=== PATIENT | female | born 1955 | race Caucasian/White ===

== ENCOUNTER 2017-09-07 09:42 | Outpatient (CLI) | payer BC | END 2017-09-07 16:42 | disposition home or self-care (01) | LOC: HPC 09:42 | DX: K43.9 Ventral hernia without obstruction or gangrene (principal) | CPT/HCPCS: Z7500 ==

== ENCOUNTER 2017-10-09 08:17 | Inpatient (IN) | payer BC ==
[~2017-10-09 08:17] MED LIST: BUPIVACAINE 0.25%/EPI (MDV) 50 ML VIAL INJ; CEFAZOLIN 1 GM INJ; CEFAZOLIN 2 GM/50 ML (PMX) 50 ML IVPB; D5W-0.45 NACL + KCL 20 MEQ 1,000 ML IV; DEXAMETHASONE 4 MG/ML 1 ML INJ; METOCLOPRAMIDE 10 MG INJ
[2017-10-09] MEDS ORDERED: FENTAnyl 50 MCG/ML VIAL (08:59)
[2017-10-09] MEDS ORDERED: MIDAZOLAM 1 MG/ML 2 ML INJ (08:59)
[2017-10-09] MEDS ORDERED: PROPOFOL 20 ML (09:01)
[2017-10-09] MEDS ORDERED: ROCURONIUM 50 MG INJ (09:01)
[2017-10-09] MEDS ORDERED: LIDOCAINE 100 MG SYRINGE (09:01)
[2017-10-09] MEDS ORDERED: SUCCINYLCHOLINE CHLORIDE 100 MG/5 ML SYG IV (09:01)
[2017-10-09 09:18] LABS: ADD MAN DIFF? NO
[2017-10-09 09:24] LABS: WHITE BLOOD COUNT 7.4 10^3/ul (4.8-10.8)
[2017-10-09 09:24] LABS: BASOPHILS % 0.5 % (0.0-2.0); EOSINOPHILS % 0.3 % (0.0-7.0); HEMATOCRIT 34.7 % (37.0-47.0); HEMOGLOBIN 11.5 g/dl (12.0-16.0); LYMPHOCYTES # 3.2 10^3/ul (0.8-2.9); LYMPHOCYTES % 43.6 % (15.0-51.0); MEAN CORPUSCULAR HEMOGLOBIN 30.1 pg (29.0-33.0); MEAN CORPUSCULAR HGB CONC 33.1 g/dl (32.0-37.0); MEAN CORPUSCULAR VOLUME 90.8 fl (82.0-101.0); MEAN PLATELET VOLUME 10.4 fl (7.4-10.4); MONOCYTE # 0.5 10^3/ul (0.3-0.9); MONOCYTES % 6.8 % (0.0-11.0); NEUTROPHIL # 3.6 10^3/ul (1.6-7.5); NEUTROPHILS % 48.4 % (39.0-77.0); PLATELET COUNT 208 10^3/UL (140-415); RED BLOOD COUNT 3.82 10^6/ul (4.20-5.40)
[2017-10-09 09:39] LABS: INR 0.99; PARTIAL THROMBOPLASTIN TIME 30.3 Sec (25.0-35.0); PROTIME 13.2 Sec (11.9-14.9)
[2017-10-09 09:46] LABS: ALANINE AMINOTRANSFERASE 30 IU/L (13-69); ALBUMIN 4.5 g/dl (3.3-4.9); ALKALINE PHOSPHATASE 41 IU/L (42-121); ANION GAP 15 (8-16); ASPARTATE AMINO TRANSFERASE 26 IU/L (15-46); CARBON DIOXIDE 24 mmol/L (21-31); CHLORIDE 107 mmol/L (97-110); GLUCOSE 100 mg/dl (70-220); TOTAL PROTEIN 7.5 g/dl (6.1-8.1)
[2017-10-09 09:47] LABS: BLOOD UREA NITROGEN 11 mg/dl (7-20); CALCIUM 8.8 mg/dl (8.4-10.2); CREATININE 0.61 mg/dl (0.44-1.00); POTASSIUM 4.2 mmol/L (3.5-5.1); SODIUM 142 mmol/L (135-144)
[2017-10-09] MEDS: BUPIVACAINE 0.25%/EPI (SDV) 30 ML INJ INJ ×2 (11:26)
[2017-10-09] MEDS ORDERED: HYDROmorphONE 2 MG/ML SYG (12:27)
[2017-10-09] MEDS: POLYMYXIN/BACITRACIN 1L IRRIG (13:30)
[2017-10-09] MEDS ORDERED: FENTAnyl 50 MCG/ML VIAL IV (14:30)
[2017-10-09] MEDS ORDERED: HYDROmorphONE (0.2 MG/ML) 10ML SYG IV (14:30)
[2017-10-09] MEDS ORDERED: METOCLOPRAMIDE 10 MG INJ IV (14:30)
[2017-10-09] MEDS: ONDANSETRON 4 MG INJ IV (14:35)
[2017-10-09] MEDS: HYDROmorphONE (0.2 MG/ML) 10ML SYG IV ×3 (14:36→16:07)
[2017-10-09] MEDS: FENTAnyl 50 MCG/ML VIAL IV ×3 (14:36→15:28)
[2017-10-09] MEDS: DIPHENHYDRAMINE 50 MG INJ IV (14:36)
[2017-10-09] MEDS: MEPERIDINE 25 MG INJ IV (14:36)
[2017-10-09] MEDS ORDERED: BISACODYL (EC) 5 MG TAB PO (15:00)
[2017-10-09] MEDS ORDERED: ACETAMINOPHEN 325 MG TAB PO (15:00)
[2017-10-09] MEDS ORDERED: BISACODYL 10 MG SUPP PR (15:00)
[2017-10-09] MEDS ORDERED: HYDROmorphONE 0.5 MG/0.5 ML SYG IV (15:00)
[2017-10-09] MEDS ORDERED: LORAZEPAM 2 MG INJ IV (15:00)
[2017-10-09] MEDS ORDERED: HYDROmorphONE 1 MG/ML SYG IV (15:00)
[2017-10-09] MEDS ORDERED: NACL 0.9% 3 ML SYG IV (15:00)
[2017-10-09] MEDS ORDERED: HYDROCODONE/APAP (5/325) TAB PO ×2 (15:00)
[2017-10-09] MEDS ORDERED: ONDANSETRON 4 MG INJ IV (15:00)
[2017-10-09] MEDS ORDERED: NA PHOSPHATE/BIPHOS 133 ML ENEMA PR (15:00)
[2017-10-09] MEDS: HYDROmorphONE 0.2 MG/ML PCA IV (15:20)
[2017-10-09] MEDS: KETOROLAC 30 MG INJ IV ×2 (15:30→21:30)
[2017-10-09] MEDS ORDERED: GLUCOSE GEL 15 GRAM TUBE BUCCAL (15:30)
[2017-10-09] MEDS ORDERED: GLUCOSE GEL 15 GRAM TUBE PO ×2 (15:30)
[2017-10-09] MEDS ORDERED: DEXTROSE 50% 50 ML SYRINGE IV ×2 (15:30)
[2017-10-09] MEDS ORDERED: GLUCAGON 1 MG INJ IM (15:30)
[2017-10-09] MEDS: D5W-0.45 NACL + KCL 20 MEQ 1,000 ML IV (16:35)
[2017-10-09] MEDS: INSULIN ASPART [NOVOLOG] 3 ML PEN SC ×2 (17:55→21:00)
[2017-10-09] MEDS: SUCRALFATE 1 GM TAB PO ×2 (17:59→21:29)
[2017-10-09] MEDS: GABAPENTIN 300 MG CAP PO (21:29)
[2017-10-09] MEDS: CALCIUM CARBONATE 1.25 GM TAB PO (21:30)
[2017-10-09] MEDS: PROPRANOLOL 10 MG TAB PO (22:59)
[2017-10-09] MEDS: AMITRIPTYLINE 10 MG TAB PO (22:59)
[2017-10-09] MEDS: TEMAZEPAM 30 MG PO (23:06)
[2017-10-10] MEDS: D5W-0.45 NACL + KCL 20 MEQ 1,000 ML IV ×2 (00:41→02:44)
[2017-10-10] MEDS: ACCU-CHEK XX (01:37)
[2017-10-10] MEDS: KETOROLAC 30 MG INJ IV ×2 (02:45→08:39)
[2017-10-10 04:57] LABS: ADD MAN DIFF? NO; BASOPHILS % 0.2 % (0.0-2.0); EOSINOPHILS % 0.5 % (0.0-7.0); HEMATOCRIT 28.6 % (37.0-47.0); HEMOGLOBIN 9.1 g/dl (12.0-16.0); LYMPHOCYTES # 2.7 10^3/ul (0.8-2.9); LYMPHOCYTES % 31.3 % (15.0-51.0); MEAN CORPUSCULAR HEMOGLOBIN 29.9 pg (29.0-33.0); MEAN CORPUSCULAR HGB CONC 31.8 g/dl (32.0-37.0); MEAN CORPUSCULAR VOLUME 94.1 fl (82.0-101.0); MONOCYTE # 0.8 10^3/ul (0.3-0.9); MONOCYTES % 9.2 % (0.0-11.0); NEUTROPHIL # 5.1 10^3/ul (1.6-7.5); NEUTROPHILS % 58.5 % (39.0-77.0); PLATELET COUNT 163 10^3/UL (140-415); RED BLOOD COUNT 3.04 10^6/ul (4.20-5.40); RED CELL DISTRIBUTION WIDTH 13.1 % (11.5-14.5)
[2017-10-10 04:57] LABS: WHITE BLOOD COUNT 8.7 10^3/ul (4.8-10.8)
[2017-10-10 05:23] LABS: INR 1.07; PT RATIO 1.1
[2017-10-10 05:24] LABS: PARTIAL THROMBOPLASTIN TIME 29.4 Sec (25.0-35.0)
[2017-10-10 05:38] LABS: LACTIC ACID 1.1 mmol/L (0.5-2.0)
[2017-10-10 05:42] LABS: MAGNESIUM 2.1 mg/dl (1.7-2.5); PHOSPHORUS 2.9 mg/dl (2.5-4.9)
[2017-10-10 05:42] LABS: CALCIUM 7.9 mg/dl (8.4-10.2)
[2017-10-10 05:46] LABS: B-TYPE NATRIURETIC PEPTIDE 271 PG/ML (0-125)
[2017-10-10 05:56] LABS: ALANINE AMINOTRANSFERASE 24 IU/L (13-69); ALBUMIN 3.2 g/dl (3.3-4.9); ALBUMIN/GLOBULIN RATIO 1.18; ALKALINE PHOSPHATASE 28 IU/L (42-121); ANION GAP 9 (8-16); ASPARTATE AMINO TRANSFERASE 24 IU/L (15-46); BILIRUBIN,INDIRECT 0.1 mg/dl (0-1.1); BILIRUBIN,TOTAL 0.1 mg/dl (0.2-1.3); BLOOD UREA NITROGEN 9 mg/dl (7-20); CALCIUM 8.1 mg/dl (8.4-10.2); CARBON DIOXIDE 25 mmol/L (21-31); CHLORIDE 111 mmol/L (97-110); CREATININE 0.54 mg/dl (0.44-1.00); GLUCOSE 110 mg/dl (70-220); POTASSIUM 4.5 mmol/L (3.5-5.1); SODIUM 140 mmol/L (135-144); TOTAL PROTEIN 5.9 g/dl (6.1-8.1)
[2017-10-10] MEDS: LEVOTHYROXINE 50 MCG TAB PO (06:33)
[2017-10-10] MEDS: SUCRALFATE 1 GM TAB PO ×2 (06:33→11:40)
[2017-10-10] MEDS: INSULIN ASPART [NOVOLOG] 3 ML PEN SC ×2 (07:50→11:40)
[2017-10-10] MEDS: predniSONE 5 MG TAB PO (08:38)
[2017-10-10] MEDS: FAMOTIDINE 20 MG INJ IV (08:38)
[2017-10-10] MEDS: DOCUSATE SODIUM 100 MG CAP PO (08:38)
[2017-10-10] MEDS: PROPRANOLOL 10 MG TAB PO (08:39)
[2017-10-10] MEDS: CALCIUM CARBONATE 1.25 GM TAB PO (08:39)
[2017-10-10] MEDS: ENOXAPARIN 40 MG/0.4 ML SYG SC (08:48)
[2017-10-10] MEDS: HYDROCODONE/APAP (5/325) TAB PO (11:41)
[2017-10-10] MEDS ORDERED: traZODone 100 MG TAB PO (21:00)
[2017-10-10] MEDS ORDERED: FAMOTIDINE 20 MG TAB PO (21:00)
== END 2017-10-10 13:25 | disposition home or self-care (01) | DRG 337 ==
LOC: SDS 08:17 → REC 14:50 → MS1 16:15
PROC: 0WUF0JZ Supplement Abdominal Wall with Synthetic Substitute, Open Approach (ICD-10-PCS; principal; 2017-10-09 10:30)
PROC: 0DNU4ZZ Release Omentum, Percutaneous Endoscopic Approach (ICD-10-PCS; 2017-10-09 10:30)
PROC: 0WQF0ZZ Repair Abdominal Wall, Open Approach (ICD-10-PCS; 2017-10-09 10:30)
DX: K43.9 Ventral hernia without obstruction or gangrene (principal); E11.8 Type 2 diabetes mellitus with unspecified complications; L40.9 Psoriasis, unspecified; Z53.31 Laparoscopic surgical procedure converted to open procedure; K66.0 Peritoneal adhesions (postprocedural) (postinfection)
CPT/HCPCS: 80053; 82310; 82962; 83605; 83735; 83880; 84100; 85025; 85610; 85730; 88302

== ENCOUNTER 2017-10-15 12:16 | Emergency (ER) | payer BC ==
[2017-10-15] MEDS: SOD CHLORIDE 0.9% 1,000 ML IV (15:59)
[2017-10-15] MEDS: HYDROmorphONE 1 MG/ML SYG IV (15:59)
[2017-10-15] MEDS: ONDANSETRON 4 MG INJ IV (15:59)
[2017-10-15 16:03] LABS: ADD MAN DIFF? NO
[2017-10-15 16:04] LABS: WHITE BLOOD COUNT 8.8 10^3/ul (4.8-10.8)
[2017-10-15 16:04] LABS: BASOPHILS % 0.5 % (0.0-2.0); EOSINOPHILS # 0.1 10^3/ul (0.0-0.5); EOSINOPHILS % 0.6 % (0.0-7.0); HEMATOCRIT 30.6 % (37.0-47.0); HEMOGLOBIN 9.9 g/dl (12.0-16.0); LYMPHOCYTES # 2.9 10^3/ul (0.8-2.9); LYMPHOCYTES % 33.2 % (15.0-51.0); MEAN CORPUSCULAR HEMOGLOBIN 29.8 pg (29.0-33.0); MEAN CORPUSCULAR HGB CONC 32.4 g/dl (32.0-37.0); MEAN CORPUSCULAR VOLUME 92.2 fl (82.0-101.0); MEAN PLATELET VOLUME 9.4 fl (7.4-10.4); MONOCYTE # 0.7 10^3/ul (0.3-0.9); MONOCYTES % 8.4 % (0.0-11.0); NEUTROPHILS % 56.6 % (39.0-77.0); PLATELET COUNT 230 10^3/UL (140-415); RED BLOOD COUNT 3.32 10^6/ul (4.20-5.40); RED CELL DISTRIBUTION WIDTH 13.1 % (11.5-14.5)
[2017-10-15 16:08] LABS: ADD UMIC NO; UR ASCORBIC ACID NEGATIVE (NEGATIVE); UR BILIRUBIN (Dip) NEGATIVE (NEGATIVE); UR BLOOD (Dip) NEGATIVE (NEGATIVE); UR CLARITY CLEAR (CLEAR); UR COLOR YELLOW (YELLOW); UR GLUCOSE (Dip) NEGATIVE (NEGATIVE); UR KETONES (Dip) NEGATIVE (NEGATIVE); UR LEUKOCYTE ESTERASE (Dip) NEGATIVE Leu/ul (NEGATIVE); UR NITRITE (Dip) NEGATIVE (NEGATIVE); UR SPECIFIC GRAVITY (Dip) 1.013 (1.003-1.030); UR TOTAL PROTEIN (Dip) NEGATIVE (NEGATIVE); UR UROBILINOGEN (Dip) NEGATIVE (NEGATIVE)
[2017-10-15 16:20] LABS: PROTIME 13.3 Sec (11.9-14.9)
[2017-10-15 16:21] LABS: ALANINE AMINOTRANSFERASE 28 IU/L (13-69); ALBUMIN 4.5 g/dl (3.3-4.9); ALKALINE PHOSPHATASE 44 IU/L (42-121); ANION GAP 16 (8-16); ASPARTATE AMINO TRANSFERASE 23 IU/L (15-46); BILIRUBIN,INDIRECT 0.1 mg/dl (0-1.1); BILIRUBIN,TOTAL 0.1 mg/dl (0.2-1.3); BLOOD UREA NITROGEN 11 mg/dl (7-20); CALCIUM 9.6 mg/dl (8.4-10.2); CARBON DIOXIDE 28 mmol/L (21-31); CHLORIDE 101 mmol/L (97-110); CREATININE 0.65 mg/dl (0.44-1.00); GLUCOSE 145 mg/dl (70-220); LIPASE 133 U/L (23-300); POTASSIUM 4.3 mmol/L (3.5-5.1); SODIUM 141 mmol/L (135-144); TOTAL PROTEIN 7.3 g/dl (6.1-8.1)
[2017-10-15] MEDS: SOD CHLORIDE 0.9% 100 ML (16:36)
[2017-10-15] MEDS: IODIXANOL LOCM 100 ML BTL (16:37)
[2017-10-15] MEDS: KETOROLAC 15 MG INJ IV (16:59)
[2017-10-15] MEDS: METOCLOPRAMIDE 10 MG INJ IV (16:59)
== END 2017-10-15 16:54 | disposition home or self-care (01) ==
LOC: E/R 16:54
DX: G89.18 Other acute postprocedural pain (principal); E11.9 Type 2 diabetes mellitus without complications; I10 Essential (primary) hypertension; E03.9 Hypothyroidism, unspecified; E66.9 Obesity, unspecified; R11.0 Nausea; Z68.23 Body mass index [BMI] 23.0-23.9, adult; Z79.84 Long term (current) use of oral hypoglycemic drugs
CPT/HCPCS: 36415; 74177; 80053; 81003; 83690; 85025; 85610; 96374; 96375; 99285-25

== ENCOUNTER 2017-10-21 09:40 | Outpatient (CLI) | payer BC | END 2017-10-21 15:30 | disposition home or self-care (01) | LOC: HPC 09:40 | DX: K43.9 Ventral hernia without obstruction or gangrene (principal) | CPT/HCPCS: Z7500 ==

== ENCOUNTER 2017-10-26 09:38 | Outpatient (CLI) | payer BC | END 2017-10-26 16:59 | disposition home or self-care (01) | LOC: HPC 09:38 | DX: R10.31 Right lower quadrant pain (principal); K43.9 Ventral hernia without obstruction or gangrene; E11.9 Type 2 diabetes mellitus without complications; L40.9 Psoriasis, unspecified; Z80.1 Family history of malignant neoplasm of trachea, bronchus and lung; Z80.8 Family history of malignant neoplasm of other organs or systems | CPT/HCPCS: Z7500 ==

== ENCOUNTER 2017-11-04 15:37 | Outpatient (CLI) | payer BC | END 2017-11-04 15:56 | disposition home or self-care (01) | LOC: HPC 15:37 | DX: Z09 Encounter for follow-up examination after completed treatment for conditions other than malignant neoplasm (principal); K43.9 Ventral hernia without obstruction or gangrene; E11.9 Type 2 diabetes mellitus without complications; Z85.42 Personal history of malignant neoplasm of other parts of uterus; Z85.118 Personal history of other malignant neoplasm of bronchus and lung | CPT/HCPCS: Z7500 ==

== ENCOUNTER → 2018-07-21 | Outpatient (CLI) | payer BC ==
[2018-07-21 16:58] LABS: ANION GAP 10 (5-13); BLOOD UREA NITROGEN 13 mg/dl (7-20); CALCIUM 9.8 mg/dl (8.4-10.2); CARBON DIOXIDE 26 mmol/L (21-31); CHLORIDE 104 mmol/L (97-110); CREATININE 0.48 mg/dl (0.44-1.00); Estimated GFR > 60 mL/min (>60); GLUCOSE 105 mg/dl (70-220); POTASSIUM 4.4 mmol/L (3.5-5.1); SODIUM 140 mmol/L (135-144)
== END | disposition home or self-care (01) ==
LOC: LAB 16:11
DX: R07.9 Chest pain, unspecified (principal)
CPT/HCPCS: 80048

== ENCOUNTER 2018-12-21 02:10 | Inpatient (IN) | payer BC ==
[2018-12-21] MEDS: morphine 4 MG/ML VIAL IV ×2 (03:29→04:28)
[2018-12-21 03:56] LABS: ADD MAN DIFF? NO
[2018-12-21 04:00] LABS: ADD UMIC NO; UR ASCORBIC ACID NEGATIVE (NEGATIVE); UR BILIRUBIN (Dip) NEGATIVE (NEGATIVE); UR BLOOD (Dip) NEGATIVE (NEGATIVE); UR CLARITY CLEAR (CLEAR); UR COLOR YELLOW (YELLOW); UR GLUCOSE (Dip) NEGATIVE (NEGATIVE); UR KETONES (Dip) NEGATIVE (NEGATIVE); UR LEUKOCYTE ESTERASE (Dip) NEGATIVE Leu/ul (NEGATIVE); UR NITRITE (Dip) NEGATIVE (NEGATIVE); UR SPECIFIC GRAVITY (Dip) 1.017 (1.003-1.030); UR TOTAL PROTEIN (Dip) NEGATIVE (NEGATIVE); UR UROBILINOGEN (Dip) NEGATIVE (NEGATIVE)
[2018-12-21 04:06] LABS: ALANINE AMINOTRANSFERASE 31 IU/L (13-69); ALBUMIN 4.7 g/dl (3.3-4.9); ALBUMIN/GLOBULIN RATIO 1.51; ALKALINE PHOSPHATASE 60 IU/L (42-121); ANION GAP 11 (5-13); ASPARTATE AMINO TRANSFERASE 37 IU/L (15-46); BILIRUBIN,INDIRECT 0.2 mg/dl (0-1.1); BILIRUBIN,TOTAL 0.2 mg/dl (0.2-1.3); BLOOD UREA NITROGEN 15 mg/dl (7-20); CALCIUM 10.1 mg/dl (8.4-10.2); CARBON DIOXIDE 26 mmol/L (21-31); CHLORIDE 106 mmol/L (97-110); CREATININE 0.52 mg/dl (0.44-1.00); Estimated GFR > 60 mL/min (>60); GLUCOSE 140 mg/dl (70-220); LIPASE 101 U/L (23-300); POTASSIUM 4.4 mmol/L (3.5-5.1); SODIUM 143 mmol/L (135-144); TOTAL PROTEIN 7.8 g/dl (6.1-8.1)
[2018-12-21 04:15] LABS: BASOPHILS % 0.4 % (0.0-2.0); EOSINOPHILS # 0.1 10^3/ul (0.0-0.5); EOSINOPHILS % 0.8 % (0.0-7.0); HEMATOCRIT 39.1 % (37.0-47.0); LYMPHOCYTES % 38.2 % (15.0-51.0); MEAN CORPUSCULAR HGB CONC 33.2 g/dl (32.0-37.0); MEAN CORPUSCULAR VOLUME 90.1 fl (82.0-101.0); MEAN PLATELET VOLUME 10.3 fl (7.4-10.4); MONOCYTE # 0.7 10^3/ul (0.3-0.9); MONOCYTES % 6.3 % (0.0-11.0); NEUTROPHIL # 5.6 10^3/ul (1.6-7.5); NEUTROPHILS % 53.7 % (39.0-77.0); PLATELET COUNT 220 10^3/UL (140-415); RED BLOOD COUNT 4.34 10^6/ul (4.20-5.40); RED CELL DISTRIBUTION WIDTH 12.2 % (11.5-14.5)
[2018-12-21 04:15] LABS: WHITE BLOOD COUNT 10.4 10^3/ul (4.8-10.8)
[2018-12-21] MEDS ORDERED: ACETAMINOPHEN 325 MG TAB PO ×2 (06:30→07:00)
[2018-12-21] MEDS ORDERED: ONDANSETRON 4 MG INJ IV (06:30)
[2018-12-21] MEDS ORDERED: NACL 0.9% 3 ML SYG IV (07:00)
[2018-12-21] MEDS ORDERED: BISACODYL (EC) 5 MG TAB PO (07:00)
[2018-12-21] MEDS: SOD CHLORIDE 0.9% 100 ML ×2 (07:32→13:46)
[2018-12-21] MEDS: IOHEXOL 300MG/ML 150 ML BTL ×2 (07:32→13:46)
[2018-12-21] MEDS: morphine 2 MG INJ IV ×3 (08:22→16:35)
[2018-12-21] MEDS: GABAPENTIN 300 MG CAP PO ×3 (09:00→20:22)
[2018-12-21] MEDS: predniSONE 5 MG TAB PO (09:00)
[2018-12-21] MEDS: KETOROLAC 15 MG INJ IV (10:00)
[2018-12-21] MEDS: SOD CHLORIDE 0.9% 1,000 ML IV ×2 (10:13→20:18)
[2018-12-21] MEDS: PANTOPRAZOLE 40 MG INJ IV (10:15)
[2018-12-21] MEDS: IOHEXOL 14.3 MG(I)/ML (ADULT) BTL PO (10:26)
[2018-12-21] MEDS: ONDANSETRON 4 MG INJ IV (18:14)
[2018-12-21] MEDS: HYOSCYAMINE 0.125 MG SUBL TAB PO (18:15)
[2018-12-21] MEDS: HYDROmorphONE 1 MG/ML SYG IV (19:22)
[2018-12-21] MEDS: traZODone 100 MG TAB PO (20:23)
[2018-12-21] MEDS: HYDROmorphONE 2 MG/ML SYG IV (21:00)
[2018-12-21] MEDS: METHYLPREDNISOLONE 40 MG INJ IV (23:12)
[2018-12-22] MEDS: HYDROmorphONE 2 MG/ML SYG IV ×4 (01:33→13:56)
[2018-12-22 05:19] LABS: ADD MAN DIFF? NO
[2018-12-22 05:21] LABS: WHITE BLOOD COUNT 10.7 10^3/ul (4.8-10.8)
[2018-12-22 05:21] LABS: BASOPHILS % 0.1 % (0.0-2.0); HEMATOCRIT 37.9 % (37.0-47.0); HEMOGLOBIN 12.5 g/dl (12.0-16.0); LYMPHOCYTES # 0.7 10^3/ul (0.8-2.9); LYMPHOCYTES % 6.2 % (15.0-51.0); MEAN CORPUSCULAR HEMOGLOBIN 30.1 pg (29.0-33.0); MEAN CORPUSCULAR VOLUME 91.3 fl (82.0-101.0); MEAN PLATELET VOLUME 10.1 fl (7.4-10.4); MONOCYTE # 0.3 10^3/ul (0.3-0.9); MONOCYTES % 2.3 % (0.0-11.0); NEUTROPHIL # 9.8 10^3/ul (1.6-7.5); PLATELET COUNT 184 10^3/UL (140-415); RED BLOOD COUNT 4.15 10^6/ul (4.20-5.40)
[2018-12-22 05:45] LABS: HEMOGLOBIN A1C 6.6 % (0-5.9)
[2018-12-22] MEDS: METHYLPREDNISOLONE 40 MG INJ IV ×2 (05:48→13:01)
[2018-12-22] MEDS: PANTOPRAZOLE 40 MG INJ IV ×2 (05:48→20:07)
[2018-12-22] MEDS: SOD CHLORIDE 0.9% 1,000 ML IV (05:52)
[2018-12-22 06:02] LABS: ALANINE AMINOTRANSFERASE 22 IU/L (13-69); ALBUMIN 3.6 g/dl (3.3-4.9); ALKALINE PHOSPHATASE 43 IU/L (42-121); ANION GAP 8 (5-13); ASPARTATE AMINO TRANSFERASE 24 IU/L (15-46); BILIRUBIN,INDIRECT 0.4 mg/dl (0-1.1); BILIRUBIN,TOTAL 0.4 mg/dl (0.2-1.3); BLOOD UREA NITROGEN 16 mg/dl (7-20); CALCIUM 8.4 mg/dl (8.4-10.2); CARBON DIOXIDE 24 mmol/L (21-31); CHLORIDE 109 mmol/L (97-110); CHOL/HDL RATIO 3.6 RATIO; CHOLESTEROL 179 mg/dl (100-200); CREATININE 0.49 mg/dl (0.44-1.00); Estimated GFR > 60 mL/min (>60); GLUCOSE 178 mg/dl (70-220); HDL CHOLESTEROL 49 mg/dl (35-98); LDL CHOLESTEROL,CALCULATED 112 mg/dl; POTASSIUM 4.6 mmol/L (3.5-5.1); SODIUM 141 mmol/L (135-144); TRIGLYCERIDES 89 mg/dl (0-149)
[2018-12-22] MEDS: LEVOTHYROXINE 50 MCG TAB PO (06:21)
[2018-12-22 06:24] LABS: THYROID STIMULATING HORMONE 0.335 MIU/L (0.465-4.680)
[2018-12-22 07:32] LABS: OCCULT BLOOD STOOL POSITIVE (NEGATIVE)
[2018-12-22 07:49] LABS: LACTIC ACID 1.1 mmol/L (0.5-2.0)
[2018-12-22] MEDS: GABAPENTIN 300 MG CAP PO ×3 (09:31→20:09)
[2018-12-22] MEDS: predniSONE 5 MG TAB PO (09:31)
[2018-12-22] MEDS: HYOSCYAMINE 0.125 MG SUBL TAB PO ×2 (11:21→16:09)
[2018-12-22] MEDS: INSULIN ASPART [NOVOLOG] 3 ML PEN SC ×3 (12:58→20:22)
[2018-12-22] MEDS: HYDROmorphONE 1 MG/ML SYG IV ×2 (17:04→20:05)
[2018-12-22] MEDS: MAGNESIUM CITRATE 300 ML BTL PO (17:30)
[2018-12-22] MEDS: POLYETHYLENE GLYCOL 3350 119 GM POWDER PO (18:55)
[2018-12-22] MEDS: BISACODYL (EC) 5 MG TAB PO (18:56)
[2018-12-22] MEDS: traZODone 100 MG TAB PO (20:09)
[2018-12-23] MEDS: HYDROmorphONE 1 MG/ML SYG IV ×6 (00:07→18:36)
[2018-12-23] MEDS: INSULIN ASPART [NOVOLOG] 3 ML PEN SC (01:00)
[2018-12-23] MEDS: SOD CHLORIDE 0.9% 1,000 ML IV ×3 (01:16→16:43)
[2018-12-23] MEDS: Insulin NOVOLOG SS MILD Algorithm (NPO/TPN/ENTERAL FEEDS) SC ×5 (05:00→21:20)
[2018-12-23 05:53] LABS: ADD MAN DIFF? NO
[2018-12-23 05:59] LABS: WHITE BLOOD COUNT 13.4 10^3/ul (4.8-10.8)
[2018-12-23 05:59] LABS: BASOPHILS % 0.1 % (0.0-2.0); EOSINOPHILS # 0.1 10^3/ul (0.0-0.5); EOSINOPHILS % 0.4 % (0.0-7.0); HEMOGLOBIN 10.5 g/dl (12.0-16.0); LYMPHOCYTES # 2.8 10^3/ul (0.8-2.9); LYMPHOCYTES % 20.6 % (15.0-51.0); MEAN CORPUSCULAR HGB CONC 32.8 g/dl (32.0-37.0); MEAN CORPUSCULAR VOLUME 91.4 fl (82.0-101.0); MEAN PLATELET VOLUME 10.1 fl (7.4-10.4); MONOCYTES % 7.2 % (0.0-11.0); NEUTROPHIL # 9.6 10^3/ul (1.6-7.5); NEUTROPHILS % 71.2 % (39.0-77.0); PLATELET COUNT 188 10^3/UL (140-415); RED CELL DISTRIBUTION WIDTH 12.3 % (11.5-14.5)
[2018-12-23] MEDS: LEVOTHYROXINE 50 MCG TAB PO (06:17)
[2018-12-23] MEDS: POLYETHYLENE GLYCOL 3350 119 GM POWDER PO (06:20)
[2018-12-23] MEDS: BISACODYL (EC) 5 MG TAB PO (07:54)
[2018-12-23] MEDS: GABAPENTIN 300 MG CAP PO ×3 (08:02→21:18)
[2018-12-23] MEDS: PANTOPRAZOLE 40 MG INJ IV ×2 (08:03→21:18)
[2018-12-23] MEDS: LIDOCAINE 2% (SDV) 5 ML INJ (16:49)
[2018-12-23] MEDS: PROPOFOL 40 ML (16:49)
[2018-12-23] MEDS: hydrALAzine 20 MG INJ IV (17:29)
[2018-12-23] MEDS: traZODone 100 MG TAB PO (21:18)
[2018-12-24] MEDS: HYDROmorphONE 1 MG/ML SYG IV ×4 (00:07→19:10)
[2018-12-24] MEDS: ACCU-CHEK XX (02:00)
[2018-12-24] MEDS: SOD CHLORIDE 0.9% 1,000 ML IV ×2 (06:16→14:58)
[2018-12-24] MEDS: LEVOTHYROXINE 50 MCG TAB PO (06:16)
[2018-12-24] MEDS ORDERED: INSULIN ASPART [NOVOLOG] 3 ML PEN SC (07:00)
[2018-12-24] MEDS: PANTOPRAZOLE 40 MG INJ IV ×2 (08:47→20:54)
[2018-12-24] MEDS: GABAPENTIN 300 MG CAP PO ×3 (08:48→20:54)
[2018-12-24] MEDS: HYOSCYAMINE 0.125 MG SUBL TAB PO (08:53)
[2018-12-24] MEDS: INSULIN ASPART [NOVOLOG] 3 ML PEN SC ×4 (08:59→20:55)
[2018-12-24] MEDS ORDERED: HYDROCODONE/APAP (10/325) TAB PO (09:00)
[2018-12-24] MEDS ORDERED: morphine 2 MG INJ IV (10:00)
[2018-12-24] MEDS: CIPROFLOXACIN 400MG/D5W 200 ML IVPB ×2 (13:21→20:54)
[2018-12-24] MEDS: HYDROCODONE/APAP (5/325) TAB PO (13:29)
[2018-12-24] MEDS: LORAZEPAM 2 MG INJ IV (14:18)
[2018-12-24] MEDS: ONDANSETRON 4 MG INJ IV (14:18)
[2018-12-24] MEDS: metroNIDAZOLE 500 MG/NS (PMX) 100 ML IVPB ×2 (15:34→22:21)
[2018-12-24] MEDS: traZODone 100 MG TAB PO (20:54)
[2018-12-25] MEDS: ACCU-CHEK XX (01:14)
[2018-12-25] MEDS: SOD CHLORIDE 0.9% 1,000 ML IV ×3 (02:13→23:57)
[2018-12-25] MEDS: HYOSCYAMINE 0.125 MG SUBL TAB PO (02:49)
[2018-12-25] MEDS: ONDANSETRON 4 MG INJ IV ×2 (02:49→08:26)
[2018-12-25] MEDS: metroNIDAZOLE 500 MG/NS (PMX) 100 ML IVPB ×3 (05:53→22:33)
[2018-12-25 06:09] LABS: ADD MAN DIFF? NO
[2018-12-25 06:32] LABS: WHITE BLOOD COUNT 9.2 10^3/ul (4.8-10.8)
[2018-12-25 06:32] LABS: BASOPHILS % 0.2 % (0.0-2.0); EOSINOPHILS % 0.2 % (0.0-7.0); HEMATOCRIT 34.2 % (37.0-47.0); HEMOGLOBIN 11.7 g/dl (12.0-16.0); LYMPHOCYTES # 1.6 10^3/ul (0.8-2.9); LYMPHOCYTES % 17.2 % (15.0-51.0); MEAN CORPUSCULAR HEMOGLOBIN 30.2 pg (29.0-33.0); MEAN CORPUSCULAR HGB CONC 34.2 g/dl (32.0-37.0); MEAN CORPUSCULAR VOLUME 88.1 fl (82.0-101.0); MEAN PLATELET VOLUME 9.9 fl (7.4-10.4); MONOCYTE # 0.7 10^3/ul (0.3-0.9); MONOCYTES % 7.1 % (0.0-11.0); NEUTROPHIL # 6.9 10^3/ul (1.6-7.5); NEUTROPHILS % 74.9 % (39.0-77.0); PLATELET COUNT 209 10^3/UL (140-415); RED BLOOD COUNT 3.88 10^6/ul (4.20-5.40); RED CELL DISTRIBUTION WIDTH 11.9 % (11.5-14.5)
[2018-12-25] MEDS: LEVOTHYROXINE 50 MCG TAB PO (06:32)
[2018-12-25 07:05] LABS: ALBUMIN 3.6 g/dl (3.3-4.9); ANION GAP 7 (5-13); BLOOD UREA NITROGEN 4 mg/dl (7-20); CALCIUM 8.4 mg/dl (8.4-10.2); CARBON DIOXIDE 25 mmol/L (21-31); CHLORIDE 106 mmol/L (97-110); CREATININE 0.39 mg/dl (0.44-1.00); GLUCOSE 169 mg/dl (70-220); PHOSPHORUS 3.2 mg/dl (2.5-4.9); POTASSIUM 3.9 mmol/L (3.5-5.1); SODIUM 138 mmol/L (135-144)
[2018-12-25] MEDS: GABAPENTIN 300 MG CAP PO ×3 (08:20→21:03)
[2018-12-25] MEDS: HYDROCODONE/APAP (5/325) TAB PO ×3 (08:21→19:24)
[2018-12-25] MEDS: PANTOPRAZOLE 40 MG INJ IV ×2 (08:22→21:03)
[2018-12-25] MEDS: CIPROFLOXACIN 400MG/D5W 200 ML IVPB ×2 (08:22→21:02)
[2018-12-25] MEDS: INSULIN ASPART [NOVOLOG] 3 ML PEN SC ×4 (08:26→21:00)
[2018-12-25] MEDS: predniSONE 5 MG TAB PO (09:39)
[2018-12-25] MEDS ORDERED: DEXTROSE 50% 50 ML SYRINGE IV ×2 (16:30)
[2018-12-25] MEDS ORDERED: GLUCOSE GEL 15 GRAM TUBE BUCCAL (16:30)
[2018-12-25] MEDS ORDERED: GLUCOSE GEL 15 GRAM TUBE PO ×2 (16:30)
[2018-12-25] MEDS ORDERED: GLUCAGON 1 MG INJ IM (16:30)
[2018-12-25] MEDS: traZODone 100 MG TAB PO (21:03)
[2018-12-25] MEDS: DOCUSATE SODIUM 100 MG CAP PO (21:03)
[2018-12-26] MEDS: ACCU-CHEK XX (02:00)
[2018-12-26] MEDS: SOD CHLORIDE 0.9% 1,000 ML IV (06:00)
[2018-12-26] MEDS: LEVOTHYROXINE 50 MCG TAB PO (06:11)
[2018-12-26] MEDS: metroNIDAZOLE 500 MG/NS (PMX) 100 ML IVPB (06:12)
[2018-12-26 06:37] LABS: ADD MAN DIFF? NO
[2018-12-26 06:58] LABS: WHITE BLOOD COUNT 8.4 10^3/ul (4.8-10.8)
[2018-12-26 06:58] LABS: BASOPHILS % 0.5 % (0.0-2.0); EOSINOPHILS # 0.2 10^3/ul (0.0-0.5); EOSINOPHILS % 1.8 % (0.0-7.0); HEMATOCRIT 35.6 % (37.0-47.0); HEMOGLOBIN 11.8 g/dl (12.0-16.0); LYMPHOCYTES # 3.3 10^3/ul (0.8-2.9); LYMPHOCYTES % 39.3 % (15.0-51.0); MEAN CORPUSCULAR HEMOGLOBIN 29.9 pg (29.0-33.0); MEAN CORPUSCULAR HGB CONC 33.1 g/dl (32.0-37.0); MEAN CORPUSCULAR VOLUME 90.4 fl (82.0-101.0); MEAN PLATELET VOLUME 9.9 fl (7.4-10.4); MONOCYTE # 0.6 10^3/ul (0.3-0.9); MONOCYTES % 6.5 % (0.0-11.0); NEUTROPHIL # 4.3 10^3/ul (1.6-7.5); NEUTROPHILS % 51.5 % (39.0-77.0); PLATELET COUNT 234 10^3/UL (140-415); RED BLOOD COUNT 3.94 10^6/ul (4.20-5.40); RED CELL DISTRIBUTION WIDTH 12.4 % (11.5-14.5)
[2018-12-26] MEDS: predniSONE 5 MG TAB PO (08:19)
[2018-12-26] MEDS: PANTOPRAZOLE 40 MG INJ IV (08:19)
[2018-12-26] MEDS: CIPROFLOXACIN 400MG/D5W 200 ML IVPB (08:19)
[2018-12-26] MEDS: ONDANSETRON 4 MG INJ IV (08:19)
[2018-12-26] MEDS: GABAPENTIN 300 MG CAP PO ×2 (08:20→12:53)
[2018-12-26] MEDS: INSULIN ASPART [NOVOLOG] 3 ML PEN SC ×2 (08:21→12:53)
[2018-12-26] MEDS: metroNIDAZOLE 500 MG TAB PO (15:10)
== END 2018-12-26 15:25 | disposition home or self-care (01) | DRG 391 ==
LOC: E/R 02:10 → 2NE 06:59
PROC: 0DJD8ZZ Inspection of Lower Intestinal Tract, Via Natural or Artificial Opening Endoscopic (ICD-10-PCS; principal; 2018-12-23 15:30)
DX: K52.9 Noninfective gastroenteritis and colitis, unspecified (principal); K57.31 Diverticulosis of large intestine without perforation or abscess with bleeding; E11.9 Type 2 diabetes mellitus without complications; M81.0 Age-related osteoporosis without current pathological fracture; L40.9 Psoriasis, unspecified; E03.9 Hypothyroidism, unspecified; F41.9 Anxiety disorder, unspecified; M19.90 Unspecified osteoarthritis, unspecified site; K64.8 Other hemorrhoids; Z79.82 Long term (current) use of aspirin
CPT/HCPCS: 36415; 74176; 74177; 76856; 80053; 80061; 80069; 81003; 82270; 82962; 83036; 83605; 83690; 83735; 84443; 85025; 93005; 96374; 96376; 99285-25; G0378